=== PATIENT | female | born 1965 | race Two or more races ===

== ENCOUNTER → 2020-10-02 09:16 | Outpatient (CLI) | payer OTHER, SELFPAY ==
[2020-10-02 08:41] VITALS: BMI 25.4
[2020-10-02 13:30] LABS: AST(SGOT) 18 U/L (15-37); Alanine Aminotransfer ALT/SGPT 20 U/L (13-56); Albumin, Serum 3.9 g/dL (3.2-5.0); Alkaline Phosphatase 64 U/L (45-117); Anion Gap 1 (5-15); BUN 16 mg/dL (7-18); BUN/Creat Ratio 14.7 RATIO (10-20); Calcium,Total 9.4 mg/dL (8.5-10.1); Chloride 110 mmol/L (98-107); Cholesterol 189 mg/dL (200); Creatinine, Serum 1.09 mg/dL (0.55-1.02); EST Glomerular Filtration Rate 55 mL/min (>60); Est Glom Filt Rate - Afr Amer 67 mL/min (>60); Globulin 3.9 g/dL (2.2-4.2); Glucose 92 mg/dL (74-106); High Density Lipoprotein 48 mg/dL; Protein, Total 7.8 g/dL (6.4-8.2); Sodium Level 142 mmol/L (136-145); T4 Free Direct 1.84 ng/dL (0.76-1.46); Thyroid Stim Hormone (TSH) 0.51 uIU/mL (0.358-3.74); Triglycerides 306 mg/dL; Very Low Density Lipoprotein 61 mg/dL (5-40)
[2020-10-02 14:10] LABS: Vitamin D,25 Hydroxy 29.4 ng/mL
== END ==
PROVIDERS: Referring Provider Internal Medicine Endocrinology, Diabetes & Metabolism; Visit Provider Internal Medicine Endocrinology, Diabetes & Metabolism
DX: E03.9 Hypothyroidism, unspecified (principal); E78.2 Mixed hyperlipidemia; E55.9 Vitamin D deficiency, unspecified
CPT/HCPCS: 36415; 80053; 80061; 82306; 84439; 84443

== ENCOUNTER → 2021-10-08 08:33 | Outpatient (CLI) | payer OTHER, SELFPAY ==
[2021-10-08 12:53] LABS: AST(SGOT) 18 U/L (15-37); Alanine Aminotransfer ALT/SGPT 21 U/L (13-56); Albumin, Serum 3.9 g/dL (3.2-5.0); Alkaline Phosphatase 54 U/L (45-117); Anion Gap 3 (5-15); BUN 14 mg/dL (7-18); BUN/Creat Ratio 11.1 RATIO (10-20); Calcium,Total 9.1 mg/dL (8.5-10.1); Chloride 107 mmol/L (98-107); Cholesterol 174 mg/dL (200); Creatinine, Serum 1.26 mg/dL (0.55-1.02); EST Glomerular Filtration Rate 46 mL/min (>60); Est Glom Filt Rate - Afr Amer 56 mL/min (>60); Globulin 3.8 g/dL (2.2-4.2); Glucose 92 mg/dL (74-106); High Density Lipoprotein 57 mg/dL; Potassium 4.5 mmol/L (3.5-5.1); Protein, Total 7.7 g/dL (6.4-8.2); Sodium Level 140 mmol/L (136-145); T4 Free Direct 1.52 ng/dL (0.76-1.46); Thyroid Stim Hormone (TSH) 0.86 uIU/mL (0.358-3.74); Triglycerides 205 mg/dL; Very Low Density Lipoprotein 41 mg/dL (5-40)
[2021-10-08 12:55] LABS: Vitamin D,25 Hydroxy 39.7 ng/mL
== END ==
PROVIDERS: Referring Provider Internal Medicine Endocrinology, Diabetes & Metabolism; Visit Provider Internal Medicine Endocrinology, Diabetes & Metabolism
DX: E03.8 Other specified hypothyroidism (principal); E06.3 Autoimmune thyroiditis; M85.80 Other specified disorders of bone density and structure, unspecified site; E55.9 Vitamin D deficiency, unspecified
CPT/HCPCS: 36415; 80053; 80061; 82306; 84439; 84443

== ENCOUNTER → 2023-11-28 | Outpatient (CLI) | payer OTHER, SELFPAY ==
--- NOTE | 2023-11-28 14:02 | BD_ITS ---
STUDY: DUAL ENERGY X-RAY ABSORPTIOMETRY / DXA REASON FOR EXAM: Female, 57 years old. Follow up efficacy of Rx. TECHNIQUE: Bone Mineral Density (BMD) measurements of lumbar spine and bilateral hips were obtained. COMPARISON: None. FINDINGS: Lumbar Spine (L1-L4): g/cm2 (0.759) / T-score (-2.6) / Z-score (-1.2) Findings are suggestive of osteoporosis with a high fracture risk. Left Femur Total: g/cm2 (0.733) / T-score (-1.7) / Z-score (-0.8) Left Femoral Neck: g/cm2 (0.594) / T-score (-2.4) / Z-score (-1.1) Right Femur Total: g/cm2 (0.727) / T-score (-1.8) / Z-score (-0.8) Right Femoral Neck: g/cm2 (0.595) / T-score (-2.4) / Z-score (-1.1) BD/Dexa Bone Density Study IMPRESSION: The patient is considered osteoporotic as outlined below according to World [employer] Organization (WHO) criteria with a high fracture risk. Reference Information: The T-score is the number of standard deviations above or below the standard which is normal for young adults at their peak bone mineral density. The World Health Organization (WHO) interprets the T-scores as follows: Above -1 Normal bone density Between -1 and -2.5 Osteopenia Equal to / or below -2.5 Osteoporosis As a practical clinical guideline, osteopenia may be graded as follows: Mild -1 through -1.5 Moderate -1.6 through -2.0 Severe -2.1 through -2.4 The Z-score is the number of standard deviations above or below age-matched controls. A Z-score of less than -1.5 would be considered abnormal. References: 1. NIH Osteoporosis and Related Bone Diseases www osteo.org 2. International Society for Clinical Densitometry www iscd.org 3. National Osteoporosis Foundation www nof.org Electronically Signed: Lj Rojas MD at 12:19 EST ,
== END | disposition home or self-care (01) ==
LOC: OPBD 13:58
PROVIDERS: Referring Provider Internal Medicine Endocrinology, Diabetes & Metabolism; Visit Provider Internal Medicine Endocrinology, Diabetes & Metabolism
DX: M85.89 Other specified disorders of bone density and structure, multiple sites (principal)
CPT/HCPCS: 77080